=== PATIENT | female | born 2000 | race Caucasian/White ===

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

== ENCOUNTER 2024-10-29 07:22 | Emergency (ER) | payer MEDICAID, OTHER ==
[~2024-10-29] VITALS: Ht 160 cm; Wt 73.0 kg
[2024-10-29 07:29] VITALS: TEMP 36.7; O2SAT 99
[2024-10-29] MEDS ORDERED: IBUP-2030 MT (08:25)
[2024-10-29] MEDS ORDERED: MUPI15CR11 TP (08:25)
[2024-10-29] MEDS ORDERED: CLIN-194 MT (08:25)
[2024-10-29] MEDS: DEXAMETHASONE 4MG TABLET PO ONE (08:42)
[2024-10-29] MEDS: IBUPROFEN 800MG TABLET PO ONE (08:43)
[2024-10-29] MEDS: CLINDAMYCIN PHOSPHATE 600MG/4ML VIAL IM ONE (08:43)
[2024-10-29 08:49] VITALS: BP 109/71; PULSE 68; RESP 14; O2SAT 100
== END 2024-10-29 08:51 | disposition home or self-care (01) ==
LOC: ER 07:22
DX: L03.211 Cellulitis of face (principal); Z79.899 Other long term (current) drug therapy; Z98.890 Other specified postprocedural states
CPT/HCPCS: 99283; 96372; J8540; J3490